=== PATIENT | female | born 1965 | race Caucasian/White ===

== ENCOUNTER 2018-07-21 08:15 | Day surgery (SDC) | payer OTHER ==
[2018-07-21] MEDS ORDERED: MIDAZOLAM 1 MG/ML 2 ML INJ (15:00)
[2018-07-21] MEDS ORDERED: FENTAnyl 50 MCG/ML VIAL ×2 (15:01→15:26)
[2018-07-21] MEDS: ISOSULFAN BLUE 1% 5 ML INJ SC (15:27)
[2018-07-21] MEDS ORDERED: CEFAZOLIN 1 GM INJ (16:23)
[2018-07-21] MEDS ORDERED: ONDANSETRON 4 MG INJ (16:23)
[2018-07-21] MEDS ORDERED: PROPOFOL 20 ML (16:23)
[2018-07-21] MEDS ORDERED: LIDOCAINE 2% (SDV) 5 ML INJ (16:23)
[2018-07-21] MEDS: FENTAnyl 50 MCG/ML VIAL IV ×4 (16:45→17:06)
[2018-07-21] MEDS ORDERED: ONDANSETRON 4 MG INJ IV (17:00)
[2018-07-21] MEDS ORDERED: HYDROmorphONE 1 MG/5 ML IV SYRINGE IV ×2 (17:00)
[2018-07-21] MEDS ORDERED: MEPERIDINE 25 MG INJ IV (17:00)
[2018-07-21] MEDS ORDERED: DIPHENHYDRAMINE 50 MG INJ IV (17:00)
[2018-07-21] MEDS: HYDROCODONE/APAP (7.5/325) TAB PO (17:56)
== END 2018-07-21 18:06 | disposition home or self-care (01) ==
LOC: SDS 08:15
DX: C50.912 Malignant neoplasm of unspecified site of left female breast (principal); N60.12 Diffuse cystic mastopathy of left breast; E11.69 Type 2 diabetes mellitus with other specified complication
CPT/HCPCS: 19301; 82962; 88307; 88331